=== PATIENT | male | born 1990 | race Caucasian/White ===

== ENCOUNTER 2020-04-09 14:09 | Emergency (ER) | payer OTHER ==
[~2020-04-09] VITALS: Ht 170.2 cm; Wt 68.0 kg
[~2020-04-09 14:09] MED LIST: A-B OTIC EAR DR15 ML OT; AUGMENTIN 875875 M1 PO; AZITHROMYCIN 2250 MG PO; CLARITIN10 M2 PO; DOXYCYCLINE 10100 MG PO; HYDROCODONE-AP1 EAC6 PO; IBUPROFEN 800800 MG PO; NAPROSYN500 MG PO; NOHOMEMEDICATIONS; PENICILLIN V P500 MG PO; PHENERGAN-CODE120 ML PO; PROMETHAZINE-D120 ML PO; TOBREX5 ML OP; ULTRAM 50MG TAB50 MG PO; VICODIN 5-3001 EACH PO
[2020-04-09] MEDS ORDERED: NAPROSYN500 MG PO (15:53)
[2020-04-09 16:06] VITALS: BP 112/65
== END 2020-04-09 16:07 | disposition home or self-care (01) ==
LOC: M.ERS 14:09
DX: S63.501A Unspecified sprain of right wrist, initial encounter (principal); F17.210 Nicotine dependence, cigarettes, uncomplicated; Z88.2 Allergy status to sulfonamides; W22.8XXA Striking against or struck by other objects, initial encounter; Y93.89 Activity, other specified; Y92.89 Other specified places as the place of occurrence of the external cause; Y99.8 Other external cause status

== ENCOUNTER 2020-10-16 20:18 | Emergency (ER) | payer OTHER ==
[~2020-10-16] VITALS: Ht 172.7 cm; Wt 79.4 kg
[2020-10-16 20:28] VITALS: BP 136/80
[2020-10-16] MEDS ORDERED: AUGMENTIN 875-1 EACH PO (21:01)
[2020-10-16] MEDS ORDERED: NAPROSYN500 MG PO (21:01)
== END 2020-10-16 21:11 | disposition home or self-care (01) ==
LOC: M.ERS 20:18
DX: K08.89 Other specified disorders of teeth and supporting structures (principal); F17.210 Nicotine dependence, cigarettes, uncomplicated; Z88.2 Allergy status to sulfonamides